=== PATIENT | female | born 1950 | race Caucasian/White ===

== ENCOUNTER → 2022-02-12 | Outpatient (CLI) | payer MEDICARE, OTHER ==
--- NOTE | 2022-02-12 13:10 | CT ---
EXAMINATION TYPE: CT left knee - [facility] Protocol DATE OF EXAM: 02/12/2022 COMPARISON: None HISTORY: 71-year-old female surgical planning CT, Unilateral primary osteoarthritis CT DLP: 1335 mGycm Automated exposure control for dose reduction was used. Technique: CT scanning at the level of the hips, knees, and ankles with coronal and sagittal reconstr uctions for surgical planning purposes. FINDINGS: Hips: Osteopenia. Mild degenerative change of both hips. Sigmoid diverticulosis noted with moderate stool d istal colon and rectum. Left knee: Evaluation of the knee shows tricompartmental degenerative spurring. There is end-stage, bone on bone medial compartmental osteoarthrosis with slight. Small joint effusion. No sizable Rose's cyst. Ankles: Bony irregularity at the inferior aspect of the lateral malleolus suggesting sequela of old healed fr acture deformity. Bony spurring inferior aspect of the medial malleolus suggests sequela of old injur y here as well. The talar dome appears intact and subtalar joint. IMPRESSION: TRICOMPARTMENTAL OA LEFT KNEE, END-STAGE [id number] MEDIAL COMPARTMENT. IMAGING FOR SURGICAL PLANNI NG PURPOSES.
== END | disposition home or self-care (01) ==
LOC: RADCTMAIN 10:35
PROVIDERS: ATTEND Orthopaedic Surgery
DX: M17.12 Unilateral primary osteoarthritis, left knee (principal)

== ENCOUNTER → 2022-02-12 | Outpatient (CLI) | payer MEDICARE, OTHER ==
[2022-02-12 13:15] LABS: INR 0.9 (<1.2); Partial Thromboplastin Time 24.5 sec (22.0-30.0)
[2022-02-12 19:50] LABS: HCT 45.4 % (37.2-46.3); HGB 14.7 g/dL (12.0-15.0); MCH 31.1 pg (27.0-32.0); MCHC 32.4 g/dL (32.0-37.0); Mean Platelet Volume 10.7 fL (9.5-12.2); NRBC Per 100 WBC 0 /100 WBCS (0.0-0.0); Platelet Count 378 X 10*3/uL (140-440); RBC 4.73 X 10*6/uL (4.10-5.20); RDW 13.1 % (11.5-14.5); WBC 11.82 X 10*3/uL (4.50-10.00)
[2022-02-12 20:19] LABS: African American GFR (CKD) 100.6 (60.0-200.0); Albumin 4.2 g/dL (3.8-4.9); Albumin/Globulin Ratio 1.36 (1.60-3.17); Anion Gap 16.3 mmol/L (10.00-18.00); Blood Urea Nitrogen 12.8 mg/dL (9.0-27.0); Calcium 9.8 mg/dL (8.7-10.3); Carbon Dioxide 22.2 mmol/L (20.0-27.5); Globulin 3.1 g/dL (1.6-3.3); Non-African American GFR(CKD) 86.8 (60.0-200.0); Potassium 3.9 mmol/L (3.5-5.5); Total Bilirubin 0.2 mg/dL (0.30-1.20); Total Protein 7.2 g/dL (6.2-8.2)
[2022-02-12 20:40] LABS: Appearance,Urine Cloudy (Clear); Bilirubin,Urine Negative (Negative); Blood,Urine Negative (Negative); Color,Urine Yellow (Yellow); Ketones,Urine Negative (Negative); Nitrite,Urine Positive (Negative); PH, Urine 6.5 (5.0-8.0); Specific Gravity,Urine 1.013 (1.001-1.030); Urobilinogen,Urine 0.2 (0.2,1.0)
[2022-02-12 20:44] LABS: Bacteria,Urine 4+ /HPF (None Seen)
== END | disposition home or self-care (01) ==
LOC: LABPAT 11:55
PROVIDERS: ATTEND Orthopaedic Surgery
DX: Z01.812 Encounter for preprocedural laboratory examination (principal); M17.12 Unilateral primary osteoarthritis, left knee
CPT/HCPCS: 80053; 81001; 85027; 85610; 85730; 87070; 93005

== ENCOUNTER 2022-03-08 10:53 | Day surgery (SDC) | payer MEDICARE, OTHER ==
[2022-03-01 17:12] VITALS: BMI 60.2
[~2022-03-08 10:53] MED LIST: ACETAMINOPHEN TAB 500 MG TAB PO PRN; DEXAMETHASONE SOD PHOSPHATE 10 MG/ML 1 ML VIAL IV PRN; DOCUSATE 100 MG CAP PO PRN; FAMOTIDINE 20 MG/2 ML VIAL IVP PRN; HYDROmorphone 0.5 MG/0.5 ML SYRINGE IVP PRN; KETOROLAC 15 MG/ML 1 ML VIAL IVP PRN; MIDAZOLAM 2 MG/2 ML VIAL IV PRN; ONDANSETRON 4 MG/2 ML VIAL IVP PRN; TRANEXAMIC ACID IN NACL,ISO-OS 1,000 MG in SALINE 1 100ML.BAG IVPB PRN; ceFAZolin 3 GM in SODIUM CHLORIDE 0.9% 100 ML IVPB PRN; oxyCODONE ER 10 MG TAB.ER.12H PO PRN
[2022-03-08] MEDS: LACTATED RINGERS 1,000 ML IV SCH (12:02)
[2022-03-08] MEDS ORDERED: fentaNYL (PF) 50 MCG/ML 2 ML AMP IVP ONE (12:12)
--- NOTE | 2022-03-08 12:37 | P.ANPRN ---
Procedure Note - Anesthesia - Nerve Block Performed Left Adductor Canal Time Out Performed: Yes (12:11) Date of Procedure: 03/08/22 Procedure Start Time: 12:11 Procedure Stop Time: :19 Location of Patient: PreOp Indication: Acute Post-Operative Pain, Requested by Surgeon (Dr Hernandez) Sedation Type: Sedate with meaningful contact maintained Preparation: Sterile Prep Position: Supine Catheter: None Needle Types: Pajunk Needle Gauge: 21 Ultrasound used to visualize needle placement: Yes Ultrasound used to observe medication spread: Yes Injectate: 0.5% Ropivacaine (see comment for volume) (15cc) Blood Aspirated: No Pain Paresthesia on Injection Noted: No Resistance on Injection: Normal Image Stored and Saved: Yes Events: Uneventful and Well Tolerated
--- NOTE | 2022-03-08 12:42 | P.ANPRN ---
Procedure Note - Anesthesia - Nerve Block Performed Left iPack Time Out Performed: Yes Date of Procedure: 03/08/22 Procedure Start Time: 12:20 Procedure Stop Time: 12:25 Location of Patient: PreOp Indication: Acute Post-Operative Pain, Requested by Surgeon (Dr Hernandez) Sedation Type: Sedate with meaningful contact maintained Preparation: Sterile Prep Position: Supine Catheter: None Needle Types: Pajunk Needle Gauge: 21 Ultrasound used to visualize needle placement: Yes Ultrasound used to observe medication spread: Yes Injectate: 0.5% Ropivacaine (see comment for volume) (15cc +5cc PF Normal saline) Blood Aspirated: No Pain Paresthesia on Injection Noted: No Resistance on Injection: Normal Image Stored and Saved: Yes Events: Uneventful and Well Tolerated
[2022-03-08] MEDS ORDERED: SUCCINYLCHOLINE CHLORIDE 200 MG/10 ML VIAL IV ONE (12:53)
[2022-03-08] MEDS ORDERED: MIDAZOLAM 2 MG/2 ML VIAL ONE (12:53)
[2022-03-08] MEDS ORDERED: TRANEXAMIC ACID IN NACL,ISO-OS 1,000 MG/100 ML BAG ONE (12:53)
[2022-03-08] MEDS ORDERED: PHENYLEPHRINE-0.9% NACL SYG 1,000 MCG/10 ML SYRINGE ONE (12:53)
[2022-03-08] MEDS ORDERED: ePHEDrine 50 MG/ML 1 ML VIAL ONE (12:53)
[2022-03-08] MEDS ORDERED: ROPIVACAINE 5 MG/ML 30 ML VIAL ONE (12:53)
[2022-03-08] MEDS ORDERED: PROPOFOL 10 MG/ML 20 ML VIAL IV ONE (12:53)
[2022-03-08] MEDS ORDERED: LIDOCAINE 2% INJ 20 MG/ML (2 ML VIAL) ONE (12:53)
[2022-03-08] MEDS ORDERED: SODIUM CHLORIDE 0.9% (PF) 10 ML VIAL ONE (12:53)
[2022-03-08] MEDS ORDERED: fentaNYL (PF) 50 MCG/ML 2 ML AMP ONE (12:53)
[2022-03-08] MEDS: ROPIVACAINE/EPI/CLONIDINE/KET 50 ML SYRINGE MISCELLANE PRN ×2 (13:30→14:24)
[2022-03-08] MEDS ORDERED: LACTATED RINGERS 1,000 ML IV ONE (14:24)
[2022-03-08] MEDS ORDERED: VANCOMYCIN 1,000 MG VIAL MISCELLANE ONE (14:36)
[2022-03-08] MEDS ORDERED: HYDROmorphone 0.5 MG/0.5 ML SYRINGE IVP PRN ×3 (15:33)
[2022-03-08] MEDS ORDERED: hydrOXYzine pamoate 25 MG CAP PO PRN (15:33)
[2022-03-08] MEDS ORDERED: ONDANSETRON 4 MG/2 ML VIAL IVP PRN (15:33)
[2022-03-08] MEDS ORDERED: HYDROcodone/APAP 5-325MG 1 EACH TAB PO PRN (15:33)
[2022-03-08] MEDS ORDERED: NALOXONE 0.4 MG/ML 1 ML VIAL IV PRN (15:33)
--- NOTE | 2022-03-08 15:37 | P.OP ---
Date of Procedure: 03/08/22 Preoperative Diagnosis: 1. Severe left knee osteoarthritis 2. BMI 44.5 3. Former cigarette smoker, last cigarette 12/04/2021 Postoperative Diagnosis: Same Procedure(s) Performed: Left total knee arthroplasty Implants: 1. [employer] Triathlon CR Femur Size #4 2. [place] [employer] Clay Tibial Base Size #3 with 12x50 stem 3. [place] [employer] CS poly Size #3, 9-mm 4. [employer] Triathlon all poly patella, Size #32 Anesthesia: GETA, regional Surgeon: Tacho Hernandez Chief Controller #1: Graeme Diamond Estimated Blood Loss (ml): 100 IV fluids (ml): 1,200 Pathology: none sent Condition: stable Disposition: PACU Indications for Procedure: The patient is a very pleasant 71-year-old female with a BMI 44.5 who had severe left knee osteoarthritis that failed to improve with nonsurgical treatment. She met with me in the office and requested going forward with a total knee replacement. I asked her to quit smoking before I would consider an elective total knee replacement. She was able to quit smoking and we both agreed that proceeding with a total knee replacement would be in her best interest given her failure to improve with nonsurgical treatment and severe arthritis that was limiting her ability to walk and be active. She understands that she is an increased risk of having a complication due to her weight particularly infection and delayed wound healing. I met with the patient preoperatively in the office setting and discussed treatment of their symptomatic knee arthritis. They failed a long course of nonsurgical treatment and elected to proceed with an elective total knee replacement. I discussed the potential risks and complications at length and gave them ample time to ask questions. Risks discussed included: risks from anesthesia, superficial site surgical infection, acute and/or chronic periprosthetic joint infection, delayed wound healing, drainage, wound necrosis, instability, stiffness, stiffness requiring manipulation and/or revision surgery, damage to local blood vessels or nerves, aseptic loosening of the implants, extensor mechanism issues including disruption, patellar maltracking, avascular necrosis etc., continued or worsened knee pain, generalized diss atisfaction with surgical outcome, need for revision surgery, an inability to regain preinjury level of function, DVT, PE, other medical complications, and possibly loss of life or limb. The patient voiced their understanding that while these are the most common complications other less common complications are possible. They provided both their verbal and written consent to go forward with surgery. Operative Findings: Severe tricompartmental osteoarthritis Description of Procedure: The patient was identified in preoperative holding and the correct operative extremity was verified and marked with a marker. I reviewed the consent form with the patient at length. All of their questions were answered. The patient was given a block by anesthesia. They were then brought back to the operating room. They were transferred onto the operating room table where a general anesthetic, preoperative antibiotics, and tranexamic acid were administered by anesthesia. A tourniquet was applied to the proximal aspect of the operative extremity. The contralateral extremity was padded under the heel and secured to the operating room table with a nonsterile blue towel and tape. The ipsilateral arm was carefully draped across the patient's chest and secured with a pillow and foam. A post was applied over the lateral aspect of the ipsilateral thigh and a bolster was placed under the ipsilateral foot. I verified that the operative extremity was stable and the knee was flexed to 90. The operative extremity was then placed in a leg abraham, nonsterile drapes were applied, and the extremity was prepped and draped sterilely in the standard sterile fashion. Prior to starting surgery timeout was performed identifying the correct patient, operative extremity, and procedure. The leg was then elevated, exsanguinated with an Esmarch bandage, and the tourniquet was inflated. An anterior midline incision was made sharply with a scalpel. Once I had dissected deep to the superficial fascial layer medial and lateral flaps were elevated. A medial parapatellar arthrotomy was created. Upon opening the knee joint there were diffuse arthritic changes in all 3 compartments. The anterior horn of the medial meniscus were sharply released and a medial release was performed around the posterior medial corner of the knee to facilitate retractor placement. The fat pad was excised with electrocautery. The patella was found to be severely arthritic and a provisional cut was made with a sagittal saw to facilitate mobilization of the extensor mechanism during the procedure. Remnants of the ACL and PCL were then excised from the notch. 4 mm pins were then placed within the incision in the medial distal femur and proximal tibia. Arrays were applied to the pins and I verified they were completely tightened. The knee was then registered with the Electro-LuminX robot and manipulations in implant position were made to balance the knee and opitmize implant position. Using the Jose robotic saw all cuts were made in accordance with our plan. After all bony fragments had been removed the cuts were verified with the planar probe. The tibia was then subluxed forward and sized. The knee was brought into flexion and a lamina fan blade aligner was placed to allow removal of the meniscal remnants both medially and laterally as well as posterior osteophytes. Local anesthetic was then infiltrated around the joint capsule. Trial implants were then placed within the knee. Range of motion and collateral ligament tension was then evaluated. Adjustments in implant size and position were then made accordingly. Once the knee was felt to be appropriately balanced the Jose pins were removed. The patella was then recut, sized, and punched. A trial patellar button was then placed. With the trial components in place, the patella tracked midline. The femur was then drilled and the trial component removed. The trial tibial component was then appropriately rotated, pinned, and prepared for the keel. Due to the patient's weight has elected to use a short stem on the tibial component. All trial components were then removed from the knee. The knee was thoroughly irrigated with pulsatile lavage. Cement was prepared via vacuum mixing in a bowl on the back table. I then hand pressurized cement into the femur and tibia and placed the implants beginning with the tibial base tray and poly liner, femoral component, and finally the patellar button. All extruded cement was removed including from the pin sites. Once the cement had hardened the knee was evaluated one final time with the final polyethylene liner in place. The knee had full extension and flexion and felt stable to varus and valgus stress throughout the arc of motion. The tourniquet was released and with the tourniquet down the patella tracked midline. All bleeders were controlled with electrocautery. The knee was then soaked for 3 minutes with a dilute Betadine soak. The knee was thoroughly irrigated using 3 L of sterile saline and pulsatile lavage. Due to the patient's weight 2 g of vancomycin powder was placed in the wound prior to closure. The extensor mechanism was then reapproximated using pop off Vicryl sutures followed by a running barbed suture. The knee was then closed in layers with a 0 strata fix for the deep fascial layer, 2-0 strata fix for the superficial subcutaneous layer and Monocryl and Steri-Strips for the skin. A sterile dressing was applied. I verified that all instrument, sponge, and sharp counts were correct. The patient was then transferred off the operating room table, extubated, and brought to recovery having tolerated the procedure well. Graeme Diamond PA-C was required as a skilled medical assistant per diem due to the complexity of the procedure for patient positioning, draping, retraction, placement of hardware, and closure of wound. PLAN: The patient can weight-bear as tolerated on the operative extremity. DVT prophylaxis with aspirin 81 mg twice a day based on preoperative risk stratification. Follow-up in the office in 2 weeks for wound check and x-rays of the knee including an AP and lateral. Due to the patient's weight she'll be treated with doxycycline 100 mg twice a day for 2 weeks to lower the risk of wound healing issues and infection.
--- NOTE | 2022-03-08 16:39 | XR ---
EXAMINATION TYPE: XR knee limited LT DATE OF EXAM: 03/08/2022 COMPARISON: NONE HISTORY: Knee surgery TECHNIQUE: 2 view FINDINGS: There is left total knee prosthesis. Components appear in anatomic position. IMPRESSION: No complicating process seen.
--- NOTE | 2022-03-08 18:02 | P.CONS ---
History of Present Illness - Reason for Consult Consult date: 03/08/22 Medical management Requesting physician: Tacho Hernandez - Chief Complaint Left knee pain - History of Present Illness This is a 71-year-old patient who follows with Dr. Sánchez. Chronic stable medical conditions include hypertension, GERD, hypothyroid, arthritis in many joints. Patient stop smoking about 4 months ago. Underwent left total knee arthroplasty. Pain is controlled. No nausea vomiting. No chest pain or shortness of breath. Patient's 2 daughters at the bedside. Sitting up on the bed. Review of systems: GEN.: Tired EYES: None HEENT: None NECK: None RESPIRATORY: None CARDIOVASCULAR: None GASTROINTESTINAL: Heartburn GENITOURINARY: None MUSCULOSKELETAL: Joint pains LYMPHATICS: None HEMATOLOGICAL: None PSYCHIATRY: None NEUROLOGICAL: Was using a cane prior to surgery Past medical history to include: Hypertension, osteoarthritis, hypothyroid, GERD Social history: Smoke a pack a day for close to 40 years talk about 3 months ago. . Was using a cane Physical examination: VITAL SIGNS: 97.8, 114, 17, 10 9 x 76, 96% room air] GENERAL: BMI 44.5, declining but awake, comfortable. EYES: Pupils equal. Conjunctiva normal. HEENT: External appearance of nose and ears normal, oral cavity grossly normal. NECK: JVD not raised; masses not palpable. HEART: First and second heart sounds are normal; no edema. LUNGS: Respiratory rate normal; clear to auscultation. ABDOMEN: Soft, nontender, liver spleen not palpable, no masses palpable. PSYCH: Alert and oriented x3; mood and affect normal. MUSCULOSKELETAL:No Clubbing/cyanosis;muscles-grossly intact. Evidence of OA. Dressing over the left knee. NEUROLOGICAL: Cranial nerves grossly intact; no facial asymmetry, power and sensation grossly intact. LYMPHATICS: No lymph nodes palpable in the axilla and neck INVESTIGATIONS, reviewed in the clinical context: [02/12/2022: WBC 11.8 hemoglobin 14.7 platelets 378 potassium 3.9 creatinine 0.7 Assessment and plan: -Left total knee arthroplasty. Aspirin for DVT prophylaxis. Pain control. -GERD PPI -Primary osteoarthritis multiple joints Pain controlled -Hypothyroid Synthroid -Essential hypertension Continue Avapro, hold Norvasc for now Care was discussed with the patient. Questions answered. Medications as above. Thank you Dr. Hernandez Past Medical History Past Medical History: Cancer, Hypertension, Osteoarthritis (OA) Additional Past Medical History / Comment(s): skin CA yrs ago History of Any Multi-Drug Resistant Organisms: None Reported Past Surgical History: Cholecystectomy, Hysterectomy Past Anesthesia/Blood Transfusion Reactions: No Reported Reaction Additional Past Anesthesia/Blood Transfusion Reaction / Comm: no hx blood transfusion Smoking Status: Former smoker - Past Family History Mother Family Medical History: No Reported History Medications and Allergies Home Medications Medication Instructions Recorded Confirmed Type Aspirin 81 mg PO DAILY 03/01/22 03/08/22 History Cholecalciferol [Vitamin D3 (25 50 mcg PO DAILY 03/01/22 03/08/22 History Mcg = 1000 Iu)] Diclofenac Sodium [Voltaren] 75 mg PO BID 03/01/22 03/08/22 History Famotidine [Pepcid] 40 mg PO HS 03/01/22 03/08/22 History Ibuprofen 800 mg PO Q8H PRN 03/01/22 03/08/22 History Irbesartan [Avapro] 300 mg PO QAM 03/01/22 03/08/22 History Levothyroxine Sodium [Synthroid] 50 mcg PO QAM 03/01/22 03/08/22 History Loratadine [Claritin] 10 mg PO DAILY 03/01/22 03/08/22 History amLODIPine [Norvasc] 10 mg PO QAM 03/01/22 03/08/22 History hydroCHLOROthiazide 25 mg PO DAILY 03/01/22 03/08/22 History Acetaminophen Tab [Tylenol] 500 mg PO 03/08/22 History Aspirin 81 mg PO BID 30 Days #60 tab 03/08/22 Rx Diclofenac Sodium [Voltaren] 75 mg PO BID 30 Days #60 tab 03/08/22 Rx Docusate [Colace] 100 mg PO BID #60 capsule 03/08/22 Rx Doxycycline Monohydrate 100 mg PO BID 14 Days #28 cap 03/08/22 Rx HYDROcodone/APAP 5-325MG [[place] 1 - 2 tab PO Q6HR PRN 7 Days #32 03/08/22 Rx 5-325] tab Omeprazole 40 mg PO DAILY 30 Days #30 cap 03/08/22 Rx Allergies Allergy/AdvReac Type Severity Reaction Status Date / Time No Known Allergies Allergy Verified 03/08/22 11:30 Physical Exam Vitals: Vital Signs Temp Pulse Pulse Resp BP BP Pulse Ox 03/08/22 16:15 116 H 18 119/71 91 L 03/08/22 16:00 116 H 16 111/73 92 L 03/08/22 15:45 116 H 16 119/68 93 L 03/08/22 15:29 98.8 F 117 H 18 115/65 93 L 03/08/22 12:19 97 18 99/54 96 03/08/22 11:49 97.8 F 102 H 18 147/70 95 Intake and Output 03/08/22 03/08/22 03/08/22 06:59 14:59 22:59 Intake Total 1400 50 Output Total 100 Balance 1300 50 Intake: IV 1400 50 Output: Estimated Blood Loss 100 Other: Weight 129 kg
[2022-03-08] MEDS: HYDROcodone/APAP 5-325MG 1 EACH TAB PO PRN (18:23)
[2022-03-08] MEDS: ceFAZolin 3 GM in SODIUM CHLORIDE 0.9% 100 ML IVPB SCH (20:40)
[2022-03-08] MEDS: SENNOSIDES-DOCUSATE SODIUM 1 EACH TAB PO SCH (20:40)
[2022-03-08] MEDS: FAMOTIDINE 20 MG TAB PO SCH (20:40)
[2022-03-08] MEDS: ASPIRIN 81 MG PO SCH (20:40)
[2022-03-08] MEDS: ETODOLAC 400 MG TAB PO SCH (20:40)
[2022-03-09] MEDS: LEVOTHYROXINE 50 MCG TAB PO SCH (06:01)
[2022-03-09] MEDS: ceFAZolin 3 GM in SODIUM CHLORIDE 0.9% 100 ML IVPB SCH (06:01)
[2022-03-09] MEDS: LACTATED RINGERS 1,000 ML IV SCH ×5 (06:02→23:08)
--- NOTE | 2022-03-09 07:08 | P.PN ---
Subjective Patient is doing well as morning. She has mild discomfort in her knee but otherwise doing well. She states she's been up to walk and is at minimal discomfort. There is no other complaints this morning. Objective - Vital Signs Vital signs: Vital Signs Temp 98.2 F 03/09/22 02:02 Pulse 116 H 03/09/22 02:02 Resp 17 03/09/22 02:02 BP 132/67 03/09/22 02:02 Pulse Ox 91 L 03/09/22 02:02 FiO2 Intake & Output 03/08/22 03/09/22 03/09/22 18:59 06:59 18:59 Intake Total 1450 820 Output Total 100 Balance 1350 820 Weight 129 kg Intake: IV 1450 Intake, IV Titration 820 Amount Lactated Ringers 1,000 ml 720 @ 100 mls/hr IV .Q10H BELÉN Rx#:[id number] ceFAZolin 3 gm In Sodium 100 Chloride 0.9% 100 ml @ 200 mls/hr IVPB Q8H BELÉN Rx#:[id number] Output: Estimated Blood Loss 100 Other: # Voids 1 - Exam Focused exam of the operative extremity was conducted. On inspection there is a clean-appearing dressing with no drainage. There is mild swelling. There is mild tenderness diffusely throughout the knee. The thigh and calf are soft. Motor nerve function is intact throughout the leg. Sensation is intact to light touch distally. The patient is able to actively plantar flex and dorsiflex her toes. Assessment and Plan Assessment: Postoperative day #1 status post total knee replacement doing well Plan: Patient weight-bear as tolerated on her operative extremity. She will receive 2 doses of postoperative antibiotics and I will also send her home on doxycycline due to her weight for low-dose antibiotic suppression. She is going to have aspirin 81 mg twice a day for DVT prophylaxis. We'll see how she does with physical therapy. We discussed either discharge home with home healthcare versus discharge to rehab or long-term facility. Patient internal medicine for medical management
[2022-03-09] MEDS: HYDROcodone/APAP 5-325MG 1 EACH TAB PO PRN ×2 (08:14→17:52)
[2022-03-09] MEDS: LOSARTAN 50 MG TAB PO SCH (09:23)
[2022-03-09] MEDS: hydroCHLOROthiazide 25 MG TAB PO SCH (09:23)
[2022-03-09] MEDS: ASPIRIN 81 MG PO SCH ×2 (09:23→21:04)
[2022-03-09] MEDS: ETODOLAC 400 MG TAB PO SCH ×2 (09:23→21:47)
[2022-03-09] MEDS: METOPROLOL TARTRATE 12.5 MG TAB PO SCH (12:28)
[2022-03-09 12:51] LABS: Basophils # (A) 0.02 X 10*3/uL (0.00-0.10); Basophils % (A) 0.1 %; Eosinophils # (A) 0 X 10*3/uL (0.04-0.35); Eosinophils % (A) 0 %; HCT 35.4 % (37.2-46.3); HGB 11.6 g/dL (12.0-15.0); Immature Grans, Automated 0.5 %; Lymphocytes # (A) 0.73 X 10*3/uL (0.90-5.00); Lymphocytes % (A) 4.8 %; MCH 31.9 pg (27.0-32.0); MCHC 32.8 g/dL (32.0-37.0); MCV 97.3 fL (80.0-97.0); Mean Platelet Volume 10.3 fL (9.5-12.2); Monocytes # (A) 1.09 X 10*3/uL (0.20-1.00); Monocytes % (A) 7.1 %; NRBC Per 100 WBC 0 /100 WBCS (0.0-0.0); Neutrophils % (A) 87.5 %; Platelet Count 341 X 10*3/uL (140-440); RBC 3.64 X 10*6/uL (4.10-5.20); RDW 13.2 % (11.5-14.5); WBC 15.32 X 10*3/uL (4.50-10.00)
[2022-03-09 13:11] LABS: ALT 79 U/L (4-34); AST 53 U/L (14-36); African American GFR (CKD) >90 (>60 ml/min/1.73 sqM); Albumin 3.6 g/dL (3.5-5.0); Albumin/Globulin Ratio 1.7; Alkaline Phosphatase 113 U/L (38-126); Anion Gap 10 mmol/L; Blood Urea Nitrogen 15 mg/dL (7-17); Calcium 8.7 mg/dL (8.4-10.2); Carbon Dioxide 24 mmol/L (22-30); Chloride 96 mmol/L (98-107); Globulin 2.1 g/dL; Glucose 140 mg/dL (74-99); Non-African American GFR(CKD) >90 (>60 ml/min/1.73 sqM); Potassium 4.2 mmol/L (3.5-5.1); Sodium 130 mmol/L (137-145); Total Bilirubin 0.3 mg/dL (0.2-1.3); Total Protein 5.7 g/dL (6.3-8.2)
[2022-03-09 14:44] LABS: Appearance,Urine Clear (Clear); Bilirubin,Urine 2+ (Negative); Blood,Urine Negative (Negative); Color,Urine Light Yellow; Glucose,Urine (UA) Negative (Negative); Ketones,Urine Negative (Negative); Leukocyte Esterase,Urine Negative (Negative); Nitrite,Urine Negative (Negative); PH, Urine 6.5 (5.0-8.0); Protein,Urine Negative (Negative); Specific Gravity,Urine 1.009 (1.001-1.035); Urobilinogen,Urine <2.0 mg/dL (<2.0)
[2022-03-09] MEDS: SENNOSIDES-DOCUSATE SODIUM 1 EACH TAB PO SCH (21:04)
[2022-03-09] MEDS: FAMOTIDINE 20 MG TAB PO SCH (21:04)
[2022-03-10] MEDS: LEVOTHYROXINE 50 MCG TAB PO SCH (05:42)
[2022-03-10] MEDS: HYDROcodone/APAP 5-325MG 1 EACH TAB PO PRN (05:42)
[2022-03-10 08:00] VITALS: BP 145/77; PULSE 101; RESP 18; TEMP 98.5
[2022-03-10] MEDS ORDERED: CHOLECALCIFEROL 25 MCG (1000 IU) TABLET PO SCH (09:00)
[2022-03-10] MEDS ORDERED: LORATADINE 10 MG TAB PO SCH (09:00)
[2022-03-10] MEDS: ETODOLAC 400 MG TAB PO SCH (09:04)
[2022-03-10] MEDS: ASPIRIN 81 MG PO SCH (09:05)
[2022-03-10] MEDS: METOPROLOL TARTRATE 12.5 MG TAB PO SCH (09:05)
[2022-03-10] MEDS: LOSARTAN 50 MG TAB PO SCH (09:05)
[2022-03-10] MEDS: hydroCHLOROthiazide 25 MG TAB PO SCH (09:05)
--- NOTE | 2022-03-10 09:47 | P.DS ---
Providers Expected date of discharge: 03/10/22 Attending physician: Tacho Hernandez Consults: 03/08/22 15:33 Consult Physician Routine Consulting Provider: Aki Abad Consult Reason/Comments: medical management Do you want consulting provider notified?: Yes Primary care physician: Olegario Sánchez - Discharge Diagnosis(es) (1) Osteoarthritis of left knee Current Visit: Yes Status: Acute (2) S/P total knee arthroplasty Current Visit: Yes Status: Acute Hospital Course: This is a 71-year-old female with known history of degenerative arthritis of the left knee. The patient presented for evaluation as an outpatient. After discussion and consideration patient elects to proceed with total knee arthroplasty. The patient is seen preoperatively by Dr. Hernandez and medically cleared for surgery by their primary care physician. Patient is admitted to [facility] on 03/08/2022 for total knee arthroplasty. The procedure is performed without complication or sequelae. The patient is doing well postoperatively. Labs and vital signs are stable on day of discharge. On day of discharge patient's knee incision is healing well. There is minimal erythema. There is no drainage noted at this time. There is minimal soft tissue swelling to the knee. Patient has full foot and ankle motion without difficulty or pain. Calf is soft and nontender to palpation. Neurovascular status to the left lower extremity is intact. Patient is discharged home in good condition. Please see [facility] rec for accurate list of home medications. Plan - Discharge Summary Discharge Rx Participant: No New Discharge Prescriptions: New Aspirin 81 mg PO BID 30 Days #60 tab Doxycycline Monohydrate 100 mg PO BID 14 Days #28 cap Omeprazole 40 mg PO DAILY 30 Days #30 cap Docusate [Colace] 100 mg PO BID #60 capsule HYDROcodone/APAP 5-325MG [[place]ina 5-325] 1 - 2 tab PO Q6HR PRN 7 Days #32 tab PRN Reason: Pain Diclofenac Sodium [Voltaren] 75 mg PO BID 30 Days #60 tab No Action hydroCHLOROthiazide 25 mg PO DAILY Cholecalciferol [Vitamin D3 (25 Mcg = 1000 Iu)] 50 mcg PO DAILY amLODIPine [Norvasc] 10 mg PO QAM Diclofenac Sodium [Voltaren] 75 mg PO BID Ibuprofen 800 mg PO Q8H PRN PRN Reason: Pain Aspirin 81 mg PO DAILY Famotidine [Pepcid] 40 mg PO HS Loratadine [Claritin] 10 mg PO DAILY Levothyroxine Sodium [Synthroid] 50 mcg PO QAM Irbesartan [Avapro] 300 mg PO QAM Acetaminophen Tab [Tylenol] 500 mg PO Discharge Medication List Aspirin 81 mg PO DAILY 03/01/22 [History] Cholecalciferol [Vitamin D3 (25 Mcg = 1000 Iu)] 50 mcg PO DAILY 03/01/22 [History] Diclofenac Sodium [Voltaren] 75 mg PO BID 03/01/22 [History] Famotidine [Pepcid] 40 mg PO HS 03/01/22 [History] Ibuprofen 800 mg PO Q8H PRN 03/01/22 [History] Irbesartan [Avapro] 300 mg PO QAM 03/01/22 [History] Levothyroxine Sodium [Synthroid] 50 mcg PO QAM 03/01/22 [History] Loratadine [Claritin] 10 mg PO DAILY 03/01/22 [History] amLODIPine [Norvasc] 10 mg PO QAM 03/01/22 [History] hydroCHLOROthiazide 25 mg PO DAILY 03/01/22 [History] Acetaminophen Tab [Tylenol] 500 mg PO 03/08/22 [History] Aspirin 81 mg PO BID 30 Days #60 tab 03/08/22 [Rx] Diclofenac Sodium [Voltaren] 75 mg PO BID 30 Days #60 tab 03/08/22 [Rx] Docusate [Colace] 100 mg PO BID #60 capsule 03/08/22 [Rx] Doxycycline Monohydrate 100 mg PO BID 14 Days #28 cap 03/08/22 [Rx] HYDROcodone/APAP 5-325MG [[place] 5-325] 1 - 2 tab PO Q6HR PRN 7 Days #32 tab 03/08/22 [Rx] Omeprazole 40 mg PO DAILY 30 Days #30 cap 03/08/22 [Rx] Follow up Appointment(s)/Referral(s): [facility], [NON-STAFF] - 1-2 Days ([facility] will call you to schedule your in home physical therapy visits. ) Tacho Hernandez MD [Medical Doctor] - 2 Weeks Patient Instructions/Handouts: Knee Replacement (DC) Activity/Diet/Wound Care/Special Instructions: Weight bear to tolerance on operative extremity with a walker. Keep operative dressing intact until follow-up appointment in the office. Call the office if dressing becomes saturated or falls off. May shower over dressing. Take pain medications as needed. Take aspirin 81mg BID x 4 weeks for blood clot prevention. Take antibiotics as prescribed. Follow-up in the office in two weeks with Dr. Hernandez. Call the office with any questions or concerns, Discharge Disposition: HOME WITH HOME HEALTH SERVICES
[2022-03-10 11:27] LABS: HCT 34.5 % (37.2-46.3); HGB 11.2 g/dL (12.0-15.0); MCH 31.3 pg (27.0-32.0); MCHC 32.5 g/dL (32.0-37.0); MCV 96.4 fL (80.0-97.0); NRBC Per 100 WBC 0 /100 WBCS (0.0-0.0); Platelet Count 293 X 10*3/uL (140-440); RBC 3.58 X 10*6/uL (4.10-5.20); WBC 11.09 X 10*3/uL (4.50-10.00)
[2022-03-10 11:52] LABS: African American GFR (CKD) 107.8 (60.0-200.0); Albumin 3.6 g/dL (3.8-4.9); Albumin/Globulin Ratio 1.8 (1.60-3.17); Anion Gap 10.6 mmol/L (10.00-18.00); BUN/Creat Ratio 25.17 Ratio (12.00-20.00); Blood Urea Nitrogen 15.1 mg/dL (9.0-27.0); Calcium 8.8 mg/dL (8.7-10.3); Carbon Dioxide 25.4 mmol/L (20.0-27.5); Potassium 3.7 mmol/L (3.5-5.5); Total Bilirubin 0.3 mg/dL (0.30-1.20); Total Protein 5.6 g/dL (6.2-8.2)
[2022-03-10 12:10] LABS: Basophils # (A) 0.05 X 10*3/uL (0.00-0.10); Basophils % (A) 0.5 %; Eosinophils # (A) 0.02 X 10*3/uL (0.04-0.35); Eosinophils % (A) 0.2 %; Immature Grans, Automated 0.4 %; Lymphocytes # (A) 1.18 X 10*3/uL (0.90-5.00); Lymphocytes % (A) 10.6 %; Monocytes # (A) 1.67 X 10*3/uL (0.20-1.00); Monocytes % (A) 15.1 %; Neutrophils # (A) 8.13 X 10*3/uL (1.80-7.70); Neutrophils % (A) 73.2 %
--- NOTE | 2022-03-10 23:58 | PN ---
PROGRESS NOTE DATE OF SERVICE: 03/09/2022 SUBJECTIVE: This 71-year-old woman, who was admitted after left knee total knee arthroplasty, is being closely monitored. No chest pain. No palpitations. No fever. OBJECTIVE: VITAL SIGNS: Pulse is 103, blood pressure 138/70, respirations 17. CHEST: Clear to auscultation. CARDIOVASCULAR: S1, S2. ABDOMEN: Soft. LEGS: Status post knee arthroplasty. LABORATORY DATA: WBC 15.2. The rest of the labs noted. ASSESSMENT: 1. Status post left total knee arthroplasty. 2. Gastroesophageal reflux disease. 3. Hypothyroidism. 4. Tachycardia. RECOMMENDATIONS: I recommend to continue current medications and symptomatic treatment. Add small dose of lopressor and repeat labs tomorrow. Continue to monitor. The patient is afebrile. Further recommendations to follow. MMODL / IJN: [id number] /
--- NOTE | 2022-03-11 04:01 | PN ---
PROGRESS NOTE DATE OF SERVICE: 03/10/2022 71-year-old woman who was admitted after left total knee arthroplasty, had elevated white count, otherwise UA was unremarkable. No chest pain. No palpitations. No fever. No cough. PHYSICAL EXAMINATION: VITAL SIGNS: Pulse 100, blood pressure 140/76, respirations 18. CHEST: Clear to auscultation. CARDIOVASCULAR: S1, S2 ABDOMEN: Soft. LEGS: Status post knee arthroplasty. LABS: WBC 11.9, improved. ASSESSMENT: 1. Status post left total knee arthroplasty. 2. Increased WBC, possibly reactive. 3. Hypertension. 4. History of degenerative joint disease. RECOMMENDATION: I recommend to continue current management and symptomatic treatment. DVT prophylaxis per Orthopedic surgery. Resume the home medications. Followup labs with the primary physician, Dr. Sánchez, CBC, BMP. MMODL / IJN: [id number] /
== END 2022-03-10 12:34 | disposition home health service (06) ==
LOC: OR 10:53 → 4SSUR 15:19 → OR 03-10 12:34
PROVIDERS: ATTEND Orthopaedic Surgery
DX: M17.12 Unilateral primary osteoarthritis, left knee (principal); G89.18 Other acute postprocedural pain; E03.9 Hypothyroidism, unspecified; I10 Essential (primary) hypertension; Z87.891 Personal history of nicotine dependence; Z79.899 Other long term (current) drug therapy; Z82.49 Family history of ischemic heart disease and other diseases of the circulatory system; Z97.3 Presence of spectacles and contact lenses; Z90.49 Acquired absence of other specified parts of digestive tract; Z90.710 Acquired absence of both cervix and uterus; Z86.59 Personal history of other mental and behavioral disorders
CPT/HCPCS: 93005; 97116; 97162; 64447; 64999; 76942; 80053 ×2; 85025 ×2; 81003; 73560; 27447; C1776; C1713; J2250; J3370; J0330; J1100; J0690 ×2; J2405; J3010; J2795; J1885; J2370; J2704; J2001